=== PATIENT | male | born 1995 | race American Indian/Alaskan Native ===

== ENCOUNTER 2021-03-18 12:50 | Emergency (ER) | payer OTHER ==
--- NOTE | 2021-03-18 13:12 | EDM.PDOC ---
ED HPI GENERAL MEDICAL PROBLEM - General Chief Complaint: General Stated Complaint: COUGH Time Seen by Provider: 03/18/21 12:54 Source of Information: Reports: Patient History Limitations: Reports: No Limitations - History of Present Illness INITIAL COMMENTS - FREE TEXT/NARRATIVE: States has been coughing for approximately one week. Has not had flu or COVID vaccines. Onset: Gradual Duration: Getting Worse Location: Reports: Chest Associated Symptoms: Reports: Cough Treatments FICTION AND NONFICTION WRITER PROSE: Reports: Other (see below) (none) Generalized Pain Score (Numeric/FACES): 0 - Related Data Allergies Allergy/AdvReac Type Severity Reaction Status Date / Time No Known Allergies Allergy Verified 03/18/21 12:59 Home Meds: Home Meds . [No Known Home Meds] 03/18/21 [History] Social & Family History - Tobacco Use Tobacco Use Status *Q: Never Tobacco User - Alcohol Use Alcohol Use History: Yes Days Per Week of Alcohol Use: 1 Alcohol Use Frequency: Rarely ED ROS GENERAL - Review of Systems Review Of Systems: Comprehensive ROS is negative, except as noted in HPI. ED EXAM, GENERAL - Physical Exam Exam: See Below Exam Limited By: No Limitations General Appearance: Alert, No Apparent Distress Eye Exam: Bilateral Eye: EOMI, Normal Inspection, PERRL Ears: Normal External Exam Nose: Normal Inspection, Normal Mucosa, No Blood Throat/Mouth: Normal Inspection, Normal Lips, Normal Gums, Normal Oropharynx, Normal Voice, No Airway Compromise Head: Atraumatic, Normocephalic Neck: Normal Inspection, Supple, Non-Tender, Full Range of Motion Respiratory/Chest: No Respiratory Distress, Lungs Clear, Normal Breath Sounds, No Accessory Muscle Use, Chest Non-Tender Cardiovascular: Normal Peripheral Pulses, Regular Rate, Rhythm, No Edema GI/Abdominal: Normal Bowel Sounds, Soft, Non-Tender Back Exam: Normal Inspection, Full Range of Motion Extremities: Normal Inspection, Normal Range of Motion, Non-Tender, Normal Capillary Refill Neurological: Alert, Oriented, Normal Cognition, Normal Gait, No Motor/Sensory Deficits Psychiatric: Normal Affect, Normal Mood Skin Exam: Warm, Dry, Intact, Normal Color Lymphatic: No Adenopathy Course - Vital Signs Last Recorded V/S: Last Vital Signs Temp 98.6 F 03/18/21 12:54 Pulse 108 H 03/18/21 12:54 Resp 12 03/18/21 12:54 BP 151/87 H 03/18/21 12:54 Pulse Ox 96 03/18/21 12:54 - Orders/Labs/Meds Orders: Active Orders 24 hr Category Date Time Status Isolation [COMM] Routine Oth 03/18/21 13:07 Active Labs: Laboratory Tests 03/18/21 Range/Units 13:09 SARS CoV-2 RNA Rapid GIL Positive H (NEGATIVE) Meds: Medications Discontinued Medications Generic Name Dose Route Start Last Admin Trade Name Freq PRN Reason Stop Dose Admin Guaifenesin/Dextromethorphan 10 ml 03/18/21 13:20 03/18/21 13:25 Guaifenesin/Dextromethorphan 100-10 Mg/5 Ml Soln 5 Ml Cup PO 03/18/21 13:21 10 ml ONETIME ONE Administration - Re-Assessments/Exams Free Text/Narrative Re-Assessment/Exam: 03/18/21 13:36 COVID positive. Asked to determine exact onset of symptoms as best he could and he said 03/06/21. This is greater than 10 days, thus monoclonal antibodies will not be administered. 03/18/21 13:40 03/18/21 13:58 Work excuse given to cover next five days of quarantine Departure - Departure Time of Disposition: 13:55 Disposition: Home, Self-Care 01 Condition: Good Clinical Impression: COVID-19 - Discharge Information Instructions: COVID-19: What to Do If You Are Sick- [facility] (05/27/2020), 10 Things You Can Do to Manage Your COVID-19 Symptoms at Home - [facility] (09/25/2020) Forms: ED Department Discharge Additional Instructions: Take a multivitamin and an aspirin daily per label directions. Take melatonin at night. Drink lots of fluids and eat a healthy diet. Take cough medicine such as Robitussin or Mucinex DM (may use generic). Follow up with your Primary Care Providers if symptoms worsen or do not resolve. Sepsis Event Note (ED) - Evaluation Sepsis Screening Result: No Definite Risk - Focused Exam Vital Signs: Vital Signs Temp Pulse Resp BP Pulse Ox 03/18/21 12:54 98.6 F 108 H 12 151/87 H 96 - Problem List & Annotations (1) COVID-19 SNOMED Code(s): 182558884 Code(s): U07.1 - COVID-19 Status: Acute - Problem List Review Problem List Initiated/Reviewed/Updated: Yes - My Orders Last 24 Hours: My Active Orders 03/18/21 13:07 Isolation [COMM] Routine - Assessment/Plan Last 24 Hours: My Active Orders 03/18/21 13:07 Isolation [COMM] Routine
[2021-03-18] MEDS: guaiFENesin/Dextromethorphan 100-10 MG/5 ML Soln 5 ML Cup PO ONE (13:25)
== END 2021-03-18 13:55 | disposition home or self-care (01) ==
LOC: CC.ED 12:50
DX: U07.1 COVID-19 (principal)
CPT/HCPCS: 87804; 99283; A9270-GY; U0002